=== PATIENT | male | born 1995 | race Caucasian/White ===

== ENCOUNTER 2017-08-30 21:13 | Emergency (ER) | payer OTHER ==
[~2017-08-30] VITALS: Ht 162.6 cm; Wt 74.8 kg
[2017-08-30 21:28] VITALS: BP 132/81
--- NOTE | 2017-08-30 21:33 | NUR ---
PT/ AMBULATED TO [facility]
--- NOTE | 2017-08-31 02:34 | NUR ---
TO ER OF2
--- NOTE | 2017-08-31 02:35 | NUR ---
22/M CAME IN W C/O GENERALIZED BODY PAIN, CHRONIC. DENIES TRAUMA/INJURY.DENIES N/V/D; SKIN IS PINK/WARM/DRY; AAOX4 WITH EVEN AND STEADY GAIT; LUNGS CLEAR BL; HR EVEN AND REGULAR; PT DENIES ANY FEVER, CP, SOB, OR COUGH AT THIS TIME;
[2017-08-31] MEDS ORDERED: KETOROLAC 60 MG/2 ML VIAL IM ONE (03:10)
[2017-08-31] MEDS ORDERED: METHOCARBAMOL 500 MG TAB PO ONE (03:10)
--- NOTE | 2017-08-31 03:40 | NUR ---
Patient discharged with v/s stable. Written and verbal after care instructions given and explained. Patient alert, oriented and verbalized understanding of instructions.AMBULATORY with steady gait. All questions addressed prior to discharge. ID band removed. Patient advised to follow up with PMD. Rx of MOTING given. Patient educated on indication of medication including possible reaction and side effects. Opportunity to ask questions provided and answered.
[2017-08-31 03:46] VITALS: BP 127/75
== END 2017-08-31 03:40 | disposition home or self-care (01) ==
LOC: MED 21:13
DX: G89.29 Other chronic pain (principal); F31.9 Bipolar disorder, unspecified; F20.9 Schizophrenia, unspecified; F12.10 Cannabis abuse, uncomplicated
CPT/HCPCS: 96372; 99283; J1885